=== PATIENT | female | born 2000 | race Caucasian/White ===

== ENCOUNTER 2021-12-31 17:37 | Emergency (ER) | payer OTHER ==
[2021-12-31 17:55] VITALS: BP 102/57; PULSE 100; RESP 16; TEMP 98.1
[2021-12-31] MEDS ORDERED: diphenhydrAMINE 50 MG/ML 1 ML VIAL IVP STA (18:55)
--- NOTE | 2021-12-31 18:56 | ED ---
Abdominal Pain HPI - General Chief Complaint: Abdominal Pain Stated Complaint: 15 WEEKS, ABD PAIN Time Seen by Provider: 12/31/21 18:00 Source: patient, RN notes reviewed Mode of arrival: ambulatory Limitations: no limitations - History of Present Illness Initial Comments: This is a 21-year-old female who presents to the emergency department for pelvic pain in . Patient is 15 weeks . When she was approximately 7 weeks , she did have vaginal bleeding and cramping in . The cramping resolved shortly after that and returned yesterday. She has had intermittent bouts of this since yesterday. It started on the left side and is now across the entire lower abdomen. Denies any vaginal bleeding. She sees Dr. Morton for obstetrics care, her next appointment with her is on January 18. Her most recent ultrasound was approximately 8 weeks ago when she had the vaginal bleeding and cramping. She does have some minor associated nausea and vomiting. This is her first . Denies any fevers, chills, sore throat, cough, dyspnea, chest pain, palpitations, diarrhea, back pain, or headaches. MD Complaint: abdominal pain Onset/Timin -: days(s) Associated Symptoms: nausea - Related Data Patient : Yes Number of weeks : 15 Previous Rx's Medication Instructions Recorded Cephalexin [Keflex] 500 mg PO Q8HR 7 Days #21 cap 12/31/21 Allergies Allergy/AdvReac Type Severity Reaction Status Date / Time No Known Allergies Allergy Verified 12/31/21 17:54 Review of Systems ROS Statement: Those systems with pertinent positive or pertinent negative responses have been documented in the HPI. ROS Other: All systems not noted in ROS Statement are negative. Past Medical History Past Medical History: No Reported History History of Any Multi-Drug Resistant Organisms: None Reported Past Surgical History: No Surgical Hx Reported Past Psychological History: No Psychological Hx Reported Smoking Status: Never smoker Past Alcohol Use History: None Reported Past Drug Use History: None Reported General Exam Limitations: no limitations General appearance: alert, in no apparent distress Head exam: Present: atraumatic, normocephalic, normal inspection Respiratory exam: Present: normal lung sounds bilaterally. Absent: respiratory distress, wheezes, rales, rhonchi, stridor Cardiovascular Exam: Present: regular rate, normal rhythm, normal heart sounds. Absent: systolic murmur, diastolic murmur, rubs, gallop, clicks GI/Abdominal exam: Present: normal bowel sounds Neurological exam: Present: alert, oriented X3, CN II-XII intact Psychiatric exam: Present: normal affect, normal mood Skin exam: Present: warm, dry, intact, normal color. Absent: rash Course Vital Signs 12/31/21 12/31/21 17:51 22:24 Temperature 98.1 F Pulse Rate 100 Respiratory 16 16 Rate Blood Pressure 102/57 O2 Sat by Pulse 99 Oximetry Medical Decision Making - Medical Decision Making This is a 21-year-old female who presents to the emergency department for pelvic pain in . Lab work was nonactionable. Ultrasound reveals a viable intrauterine . Urinalysis is consistent with contamination, however given her symptoms, it does appear that there may also be a urinary tract infection with both bacteria and yeast. Patient was given a one-time dose of fluconazole. We discussed that fluconazole is a category C drug in , however there is no correlation with defects when given a one-time dose. Patient expresses understanding. Prescription for Keflex provided, with the first dose provided in the emergency department, as her pharmacy is currently closed. She was given a dose of Benadryl in the emergency department for nausea and vomiting. Advised [id number] vitamin B6 and Unisom if she continues to have nausea and vomiting. She will follow up with Dr. Morton as scheduled. Return precautions reviewed in depth, the patient is instructed to return to the emergency department with any new, worsening, or concerning symptoms. Patient verbalized understanding. This case was discussed in detail with the attending ED physician. Presentation, findings, and treatment plan discussed in detail as well. - Lab Data Result diagrams: 12/31/21 20:53 12/31/21 20:53 Lab Results 12/31/21 12/31/21 12/31/21 Range/Units 18:29 20:53 20:53 WBC 11.0 H (3.8-10.6) k/uL RBC 4.24 (3.80-5.40) m/uL Hgb 12.8 (11.4-16.0) gm/dL Hct 38.4 (34.0-46.0) % MCV 90.6 (80.0-100.0) fL MCH 30.2 (25.0-35.0) pg MCHC 33.3 (31.0-37.0) g/dL RDW 12.5 (11.5-15.5) % Plt Count 195 (150-450) k/uL MPV 6.7 Neutrophils % 92 % Lymphocytes % 4 % Monocytes % 3 % Eosinophils % 1 % Basophils % 0 % Neutrophils # 10.1 H (1.3-7.7) k/uL Lymphocytes # 0.5 L (1.0-4.8) k/uL Monocytes # 0.3 (0-1.0) k/uL Eosinophils # 0.1 (0-0.7) k/uL Basophils # 0.0 (0-0.2) k/uL Sodium 133 L (137-145) mmol/L Potassium 3.8 (3.5-5.1) mmol/L Chloride 100 (98-107) mmol/L Carbon Dioxide 22 (22-30) mmol/L Anion Gap 11 mmol/L BUN 7 (7-17) mg/dL Creatinine 0.57 (0.52-1.04) mg/dL Est GFR (CKD-EPI)AfAm >90 (>60 ml/min/1.73 sqM) Est GFR (CKD-EPI)NonAf >90 (>60 ml/min/1.73 sqM) Glucose 132 H (74-99) mg/dL Calcium 9.5 (8.4-10.2) mg/dL Total Bilirubin 2.2 H (0.2-1.3) mg/dL AST 22 (14-36) U/L ALT 18 (4-34) U/L Alkaline Phosphatase 89 (38-126) U/L Total Protein 7.3 (6.3-8.2) g/dL Albumin 4.1 (3.5-5.0) g/dL HCG, Quant 15226.3 mIU/mL Urine Color Yellow Urine Appearance Turbid H (Clear) Urine pH 6.5 (5.0-8.0) Ur Specific [place] 1.018 (1.001-1.035) Urine Protein 3+ H (Negative) Urine Glucose (UA) Negative (Negative) Urine Ketones 4+ H (Negative) Urine Blood Large H (Negative) Urine Nitrite Negative (Negative) Urine Bilirubin Negative (Negative) Urine Urobilinogen 4.0 (<2.0) mg/dL Ur Leukocyte Esterase Large H (Negative) Urine RBC >182 H (0-5) /hpf Urine WBC >182 H (0-5) /hpf Urine WBC Clumps Many H (None) /hpf Ur Squamous Epith Cells 8 H (0-4) /hpf Urine Bacteria Occasional H (None) /hpf Urine Mucus Many H (None) /hpf Urine Yeast (Budding) Moderate H (None) /hpf Blood Type Blood Type Recheck Bld Type Recheck Status 12/31/21 Range/Units 20:53 WBC (3.8-10.6) k/uL RBC (3.80-5.40) m/uL Hgb (11.4-16.0) gm/dL Hct (34.0-46.0) % MCV (80.0-100.0) fL MCH (25.0-35.0) pg MCHC (31.0-37.0) g/dL RDW (11.5-15.5) % Plt Count (150-450) k/uL MPV Neutrophils % % Lymphocytes % % Monocytes % % Eosinophils % % Basophils % % Neutrophils # (1.3-7.7) k/uL Lymphocytes # (1.0-4.8) k/uL Monocytes # (0-1.0) k/uL Eosinophils # (0-0.7) k/uL Basophils # (0-0.2) k/uL Sodium (137-145) mmol/L Potassium (3.5-5.1) mmol/L Chloride (98-107) mmol/L Carbon Dioxide (22-30) mmol/L Anion Gap mmol/L BUN (7-17) mg/dL Creatinine (0.52-1.04) mg/dL Est GFR (CKD-EPI)AfAm (>60 ml/min/1.73 sqM) Est GFR (CKD-EPI)NonAf (>60 ml/min/1.73 sqM) Glucose (74-99) mg/dL Calcium (8.4-10.2) mg/dL Total Bilirubin (0.2-1.3) mg/dL AST (14-36) U/L ALT (4-34) U/L Alkaline Phosphatase (38-126) U/L Total Protein (6.3-8.2) g/dL Albumin (3.5-5.0) g/dL HCG, Quant mIU/mL Urine Color Urine Appearance (Clear) Urine pH (5.0-8.0) Ur Specific [place] (1.001-1.035) Urine Protein (Negative) Urine Glucose (UA) (Negative) Urine Ketones (Negative) Urine Blood (Negative) Urine Nitrite (Negative) Urine Bilirubin (Negative) Urine Urobilinogen (<2.0) mg/dL Ur Leukocyte Esterase (Negative) Urine RBC (0-5) /hpf Urine WBC (0-5) /hpf Urine WBC Clumps (None) /hpf Ur Squamous Epith Cells (0-4) /hpf Urine Bacteria (None) /hpf Urine Mucus (None) /hpf Urine Yeast (Budding) (None) /hpf Blood Type O Positive Blood Type Recheck No Previous Record Bld Type Recheck Status ABR ONLY - Radiology Data Radiology results: report reviewed, image reviewed Disposition Clinical Impression: UTI in , Yeast UTI Disposition: HOME SELF-CARE Instructions (If sedation given, give patient instructions): Urinary Tract Infection in Women (ED), Yeast Infection (ED), Urinary Tract Infection in (ED) Additional Instructions: Return to the emergency department with any new, worsening, or concerning symptoms. Take the antibiotic as prescribed for 7 days. Take [id number] vitamin B6 and Unisom as needed for nausea and vomiting. Follow-up with Dr. Morton as scheduled. Prescriptions: Cephalexin [Keflex] 500 mg PO Q8HR 7 Days #21 cap Is patient prescribed a controlled substance at d/c from ED?: No Referrals: None,Stated [Primary Care Provider] - 1-2 days
[2021-12-31] MEDS ORDERED: PYRIDOXINE 100 MG/ML 1 ML VIAL IVP SCH (19:00)
--- NOTE | 2021-12-31 19:27 | US ---
EXAMINATION TYPE: US OB >= 14 wk fetus DATE OF EXAM: 12/31/2021 COMPARISON: None CLINICAL HISTORY: Pelvic pain in TECHNIQUE: Transabdominal (TA) GESTATIONAL AGE / DATING Physician Established: (14 weeks/6 days) EDC: 06/25/2022 Dates by LMP: LMP unknown Dates by First Scan: No previous this is first scan Dates by Current Scan: (15 weeks/3 days) EDC: 06/21/2022 SURVEY IUP: Single PLACENTA: Posterior PREVIA: No Previa RAHUL: 10.1 cm Normal CERVICAL LENGTH (transabdominal: norm > 3.0cm): 3.3 cm BIOMETRY PRESENTATION: Breech LIE: Transverse with head maternal Left BPD: 2.9 cm 15 weeks / 2 days HC: 10.6 cm 15 weeks / 0 days AC: 9.4 cm 15 weeks / 4 days FL: 1.6 cm 14 weeks / 6 days ESTIMATED WEIGHT IN GRAMS: 116 grams ESTIMATED WEIGHT IN LBS/OZ: 0 lbs. 4 oz. WEIGHT PERCENTAGE BASED ON ESTABLISHED DATES: 59% HC/AC: 1.13 Normal FL/AC: 17.34 HEART RATE: 179 bpm RHYTHM: Normal IMPRESSION: No acute process.
[2021-12-31 21:02] LABS: Basophils % (A) 0 %; Eosinophils # (A) 0.1 k/uL (0-0.7); Eosinophils % (A) 1 %; HCT 38.4 % (34.0-46.0); HGB 12.8 gm/dL (11.4-16.0); Lymphocytes # (A) 0.5 k/uL (1.0-4.8); Lymphocytes % (A) 4 %; MCH 30.2 pg (25.0-35.0); MCHC 33.3 g/dL (31.0-37.0); MCV 90.6 fL (80.0-100.0); Mean Platelet Volume 6.7; Monocytes # (A) 0.3 k/uL (0-1.0); Monocytes % (A) 3 %; Neutrophils # (A) 10.1 k/uL (1.3-7.7); Neutrophils % (A) 92 %; Platelet Count 195 k/uL (150-450); RBC 4.24 m/uL (3.80-5.40); RDW 12.5 % (11.5-15.5)
[2021-12-31 21:20] LABS: ALT 18 U/L (4-34); AST 22 U/L (14-36); African American GFR (CKD) >90 (>60 ml/min/1.73 sqM); Albumin 4.1 g/dL (3.5-5.0); Alkaline Phosphatase 89 U/L (38-126); Anion Gap 11 mmol/L; Blood Urea Nitrogen 7 mg/dL (7-17); Calcium 9.5 mg/dL (8.4-10.2); Carbon Dioxide 22 mmol/L (22-30); Chloride 100 mmol/L (98-107); Glucose 132 mg/dL (74-99); Non-African American GFR(CKD) >90 (>60 ml/min/1.73 sqM); Potassium 3.8 mmol/L (3.5-5.1); Sodium 133 mmol/L (137-145); Total Bilirubin 2.2 mg/dL (0.2-1.3); Total Protein 7.3 g/dL (6.3-8.2)
[2021-12-31 21:24] LABS: Appearance,Urine Turbid (Clear); Bacteria,Urine Occasional /hpf; Bilirubin,Urine Negative (Negative); Blood,Urine Large (Negative); Budding Yeast,Urine Moderate /hpf; Color,Urine Yellow; Glucose,Urine (UA) Negative (Negative); Ketones,Urine 4+ (Negative); Leukocyte Esterase,Urine Large (Negative); Mucus,Urine Many /hpf; Nitrite,Urine Negative (Negative); PH, Urine 6.5 (5.0-8.0); Protein,Urine 3+ (Negative); RBC,Urine >182 /hpf (0-5); Specific Gravity,Urine 1.018 (1.001-1.035); Squamous Epithelial Cell,Urine 8 /hpf (0-4); WBC,Urine >182 /hpf (0-5)
[2021-12-31] MEDS ORDERED: CEPHALEXIN 500 MG CAP PO STA (22:02)
[2021-12-31] MEDS ORDERED: FLUCONAZOLE 150 MG TAB PO STA (22:02)
[2021-12-31 22:33] LABS: HCG,Quantitative Serum 84002.3 mIU/mL
== END 2021-12-31 22:25 | disposition home or self-care (01) ==
LOC: EC 17:37
DX: O23.42 Unspecified infection of urinary tract in pregnancy, second trimester (principal); Z3A.15 15 weeks gestation of pregnancy
CPT/HCPCS: 99284; 96374; 96375; 36415; 86900; 86901; 80053; 85025; 81001; 84702; 87086; 76805; J1200; J3415

== ENCOUNTER 2022-04-03 22:40 | Outpatient (CLI) | payer OTHER ==
[2022-04-04 00:22] VITALS: BP 125/56; PULSE 86; RESP 17; TEMP 97.5
--- NOTE | 2022-05-03 07:50 | P.MSEPDOC ---
Presenting Problems - Arrival Data Date of Arrival on Unit: 04/03/22 Time of Arrival on Unit: 22:40 Mode of Transport: Ambulatory - Complaint OB-Reason for Admission/Chief Complaint: Vaginal Bleeding Comment: pt presented to triage for some vaginal bleeding noted on TP an hour before coming in and for pelvic and vaginal pressure Medical History - Information : 1 Para: 0 Term: 0 : 0 Abortions: Spontaneous or Elective: 0 Number of Living Children: 0 - Gestational Age Gestational Age by DONELL (wks/days): 28 Weeks and 2 Days Review of Systems - Review of Systems Constitutional: No problems Breast: No problems ENT: No problems Cardiovascular: No problems Respiratory: No problems Gastrointestinal: No problems Genitourinary: No problems Musculoskeletal: No problems Neurological: No problems Skin: No problems Vital Signs - Temperature Temperature: 97.5 F Temperature Source: Temporal Artery Scan - Pulse Right Brachial Pulse Rate: 86 Pulse Assessment Method: Automatic Cuff - Respirations Respiratory Rate: 17 Oxygen Delivery Method: Room Air O2 Sat by Pulse Oximetry: 97 - Blood Pressure Right Arm Blood Pressure: 125/56 Blood Pressure Mean: 79 Blood Pressure Source: Automatic Cuff Medical Screen Scoring - Cervical Exam Dilation (cm): 0 - Assessment - Baby A Baseline FHR: 130 NST: Reactive Physician Notification - Physician Notified Physician Notified Date: 04/04/22 Physician Notified Time: 23:09 Physician: Jenn Call - Notification Comment Comment: reactive nst, cervical exam closed/thick/high with no change, just some pink on the pt's TP, discharged home with instructions to hydrate and follow up with Dr. Morton in the office at next scheduled appt Maternal Triage Index - Urgent/Priority 2 Urgent Priority 2: No Provider Notified: Jenn Call Provider Notified Time: 23:09 Criteria Met for Priority 2: pt presented to triage for some vaginal bleeding noted on TP an hour before coming in and for pelvic and vaginal pressure, GA 28 06/12 - Prompt/Priority 3 Prompt Priority 3: No - Non-Urgent/Priority 4 Non-Urgent Priority 4: No - Scheduled/Requesting Priority 5 Scheduled/Requesting Priority 5: No Disposition - Disposition OB Disposition: Triage, Discharge to home, Written follow up instructions reviewed Discharge Date: 04/04/22 Discharge Time: 11:10 I agree with the RN Medical Screening Exam: Yes Case reviewed; plan agreed upon as documented in EMR&OBIX.: Yes Diagnosis: PELVIC AND PERINEAL PAIN
== END 2022-04-04 00:10 | disposition home or self-care (01) ==
LOC: FBPOP 22:40
PROVIDERS: ATTEND Obstetrics & Gynecology
DX: O26.893 Other specified pregnancy related conditions, third trimester (principal); Z3A.28 28 weeks gestation of pregnancy; R10.2 Pelvic and perineal pain; N93.9 Abnormal uterine and vaginal bleeding, unspecified
CPT/HCPCS: 59025; G0463; 99213

== ENCOUNTER 2022-05-20 01:14 | Outpatient (CLI) | payer OTHER ==
[2022-05-20] MEDS: LACTATED RINGERS 1,000 ML IV SCH ×2 (02:00→02:40)
[2022-05-20 02:07] LABS: Amorphous Sediment,Urine Rare /hpf; Appearance,Urine Turbid (Clear); Bacteria,Urine Few /hpf; Bilirubin,Urine Negative (Negative); Blood,Urine Negative (Negative); Color,Urine Yellow; Glucose,Urine (UA) Negative (Negative); Ketones,Urine Negative (Negative); Leukocyte Esterase,Urine Large (Negative); Mucus,Urine Few /hpf; Nitrite,Urine Negative (Negative); PH, Urine 7.5 (5.0-8.0); Protein,Urine 1+ (Negative); RBC,Urine 4 /hpf (0-5); Specific Gravity,Urine 1.021 (1.001-1.035); Squamous Epithelial Cell,Urine 26 /hpf (0-4); Urobilinogen,Urine <2.0 mg/dL (<2.0); WBC,Urine 46 /hpf (0-5)
[2022-05-20 04:06] VITALS: BP 129/56; PULSE 77; RESP 15; TEMP 97.6
--- NOTE | 2022-05-22 09:13 | P.MSEPDOC ---
Presenting Problems - Arrival Data Date of Arrival on Unit: 05/20/22 Time of Arrival on Unit: 01:14 Mode of Transport: Ambulatory - Complaint OB-Reason for Admission/Chief Complaint: Possible Onset of Labor Comment: Patient arrived to triage c/o Chest pain on and off that started yesterday. and is not present now. Emesis started today x4 and ended 4pm. lower abdominal cramping. and pelvic pressure / on and off went to work today and had pain on and off. Denies. sexual intercourse in last 24 hours, Denies bleeding or leaking of fluid. S/O in room. Abdomen soft to palpation. Medical History - Information : 1 Para: 0 Term: 0 : 0 Abortions: Spontaneous or Elective: 0 Number of Living Children: 0 - Gestational Age Gestational Age by DONELL (wks/days): 34 Weeks and 6 Days Review of Systems - Review of Systems Constitutional: No problems Breast: No problems ENT: No problems Cardiovascular: No problems Respiratory: No problems Gastrointestinal: No problems Genitourinary: No problems Musculoskeletal: No problems Neurological: No problems Skin: No problems Vital Signs - Temperature Temperature: 97.6 F Temperature Source: Temporal Artery Scan - Pulse Pulse Oximetery Pulse Rate: 77 Pulse Assessment Method: Pulse Oximetry - Respirations Respiratory Rate: 15 Oxygen Delivery Method: Room Air O2 Sat by Pulse Oximetry: 93 - Blood Pressure Right Arm Blood Pressure: 129/56 Blood Pressure Mean: 80 Blood Pressure Source: Automatic Cuff Medical Screen Scoring - Cervical Exam Membranes: Intact - Uterine Contractions Frequency From (mins): 2 Frequency To (mins): 5 Duration From (seconds): 60 Duration To (seconds): 80 Intensity: Absent Resting: Soft to palpation - Assessment - Baby A Baseline FHR: 120 Heart Rate - NICHD Category: Category I (Normal) NST: Reactive Physician Notification - Physician Notified Physician Notified Date: 05/20/22 Physician Notified Time: 01:35 Physician: Heathre Morton Order Received: Yes - Notification Comment Comment: RN spoke with Dr. Morton via telephone Dr. Morton aware of patient complaints and. ordered urinalysis, FFN, check cervix, if dialted start hydration of alex. consistent start hydration. Call back with findings. [address]05/20/2022 Comment: Dr. Morton aware of patients maternal and status, FHR , contractions, pain. that has improved from a 11/13 to 08/[address] Morton is aware of cervical exam. fingertip/thick/-3 RN checked 1 hour later and patient was the same. Dr. Morton aware that. FFN lab result is positive. Dr. Morton will discharge patient and patient will return if. contractions get more painful and stronger. Dr. Morton ordered 2 liter of LR on patient. and can leave when LR finished. Maternal Triage Index - Prompt/Priority 3 Prompt Priority 3: Yes Criteria Met for Priority 3: Patient arrived to triage c/o Chest pain on and off that started yesterday. and is not present now. Emesis started today x4 and ended 4pm. lower abdominal cramping. and pelvic pressure 05/18 on and off went to work today and had pain on and off. Denies. sexual intercourse in last 24 hours, Denies bleeding or leaking of fluid. S/O in room. abdomen soft to palpation. Disposition - Disposition OB Disposition: Discharge to home Discharge Date: 05/20/22 Discharge Time: 03:20 I agree with the RN Medical Screening Exam: Yes Case reviewed; plan agreed upon as documented in EMR&OBIX.: Yes Diagnosis: FALSE LABOR BEFORE 37 COMPLETED WEEKS OF GEST, THIRD TRI
== END 2022-05-20 03:20 | disposition home or self-care (01) ==
LOC: FBPOP 01:14
PROVIDERS: ATTEND Obstetrics & Gynecology
DX: O47.03 False labor before 37 completed weeks of gestation, third trimester (principal); Z3A.34 34 weeks gestation of pregnancy
CPT/HCPCS: 59025; 96360; 96361; 82731; 81001; 87086; G0463; 99213

== ENCOUNTER 2022-05-24 19:44 | Outpatient (CLI) | payer OTHER ==
[2022-05-24 23:06] VITALS: BP 129/71; PULSE 86; RESP 16; TEMP 96.8
--- NOTE | 2022-05-25 06:55 | P.MSEPDOC ---
Presenting Problems - Arrival Data Date of Arrival on Unit: 05/24/22 Time of Arrival on Unit: 19:44 Mode of Transport: Ambulatory - Complaint OB-Reason for Admission/Chief Complaint: Possible Onset of Labor Medical History - Information : 1 Para: 0 Term: 0 : 0 Abortions: Spontaneous or Elective: 0 Number of Living Children: 0 - Gestational Age Gestational Age by DONELL (wks/days): 35 Weeks and 3 Days Review of Systems - Review of Systems Constitutional: No problems Breast: No problems ENT: No problems Cardiovascular: No problems Respiratory: No problems Gastrointestinal: No problems Genitourinary: No problems Musculoskeletal: No problems Neurological: No problems Skin: No problems Vital Signs - Temperature Temperature: 96.8 F Temperature Source: Oral - Pulse Right Brachial Pulse Rate: 86 Pulse Assessment Method: Automatic Cuff - Respirations Respiratory Rate: 16 Oxygen Delivery Method: Room Air O2 Sat by Pulse Oximetry: 100 - Blood Pressure Right Arm Blood Pressure: 129/71 Blood Pressure Mean: 90 Blood Pressure Source: Automatic Cuff Medical Screen Scoring - Cervical Exam Dilation (cm): 2 Effacement (%): 60 Station: -2 Membranes: Intact - Uterine Contractions Frequency From (mins): 2 Frequency To (mins): 5 Duration From (seconds): 50 Duration To (seconds): 70 Intensity: Mild Resting: Soft to palpation - Assessment - Baby A Baseline FHR: 120 Heart Rate - NICHD Category: Category I (Normal) NST: Reactive Physician Notification - Physician Notified Physician Notified Date: 05/24/22 Physician Notified Time: 21:00 Physician: Stephon Greenwood New Order Received: Yes - Notification Comment Comment: Dr. Greenwood called with reporrt of patient c/o contractions and rupture of. membranes. Amnisure negative, alex 2-4minutes, reactive NST, and cervical exam. the same after 1 hour 60/-2. Patient may be discahrge home. Maternal Triage Index - Stat/Priority 1 Stat Priority 1: No - Urgent/Priority 2 Urgent Priority 2: No - Prompt/Priority 3 Prompt Priority 3: Yes Criteria Met for Priority 3: 25 4/7 labor complaints Disposition - Disposition OB Disposition: Discharge to home Discharge Date: 05/24/22 Discharge Time: 21:00 I agree with the RN Medical Screening Exam: Yes Case reviewed; plan agreed upon as documented in EMR&OBIX.: Yes Diagnosis: FALSE LABOR BEFORE 37 COMPLETED WEEKS OF GEST, THIRD TRI
== END 2022-05-24 21:00 ==
LOC: FBPOP 19:44
PROVIDERS: ATTEND Obstetrics & Gynecology
DX: O47.03 False labor before 37 completed weeks of gestation, third trimester (principal); Z3A.35 35 weeks gestation of pregnancy
CPT/HCPCS: 84112; G0463; 99213

== ENCOUNTER 2022-05-27 23:55 | Inpatient (IN) | payer OTHER ==
[2022-05-28] MEDS ORDERED: TERBUTALINE 1 MG/ML VIAL SQ PRN (00:36)
[2022-05-28] MEDS ORDERED: LIDOCAINE 0.5% (PF) 5 MG/ML (50 ML SDV) SQ PRN (00:36)
[2022-05-28] MEDS ORDERED: OXYTOCIN 30 UNITS/500 ML NS 30 UNIT in SALINE 1 500ML.BAG IV SCH ×2 (00:45→12:04)
[2022-05-28] MEDS ORDERED: AMPICILLIN 2,000 MG in SODIUM CHLORIDE 0.9% 100 ML IVPB ONE (01:00)
[2022-05-28 01:11] LABS: Basophils % (A) 0 %; Eosinophils % (A) 0 %; HCT 34.2 % (34.0-46.0); HGB 11.7 gm/dL (11.4-16.0); Lymphocytes # (A) 1.5 k/uL (1.0-4.8); Lymphocytes % (A) 14 %; MCH 29.7 pg (25.0-35.0); MCHC 34.3 g/dL (31.0-37.0); MCV 86.7 fL (80.0-100.0); Mean Platelet Volume 8.1; Monocytes # (A) 0.4 k/uL (0-1.0); Monocytes % (A) 4 %; Neutrophils % (A) 78 %; Platelet Count 234 k/uL (150-450); RBC 3.94 m/uL (3.80-5.40); RDW 12.9 % (11.5-15.5); WBC 10.2 k/uL (3.8-10.6)
[2022-05-28] MEDS: LACTATED RINGERS 1,000 ML IV SCH ×2 (03:11→08:05)
--- NOTE | 2022-05-28 06:40 | P.HPOB ---
History of Present Illness H&P Date: 05/28/22 Chief Complaint: Leaking fluid This patient is a pleasant 21-year-old 1 para 0 female estimated date of confinement 06/25/2022 estimated gestational age 36-0/7 weeks gestation who was admitted last evening with complaints of gush of fluid at about 9:00 in the evening. Patient's care is per Dr. Durbin appears to be complicated by contractions. She did have a positive fibronectin at 35 weeks. otherwise appears to be uncomplicated. Review of Systems Genitourinary: Reports Menstruation: Reports amenorrhea Past Medical History Past Medical History: No Reported History History of Any Multi-Drug Resistant Organisms: None Reported Past Surgical History: No Surgical Hx Reported Past Anesthesia/Blood Transfusion Reactions: No Reported Reaction Past Psychological History: No Psychological Hx Reported Smoking Status: Former smoker Past Alcohol Use History: None Reported Past Drug Use History: None Reported Medications and Allergies Home Medications Medication Instructions Recorded Confirmed Type No Known Home Medications 04/03/22 05/28/22 History Allergies Allergy/AdvReac Type Severity Reaction Status Date / Time No Known Allergies Allergy Verified 05/28/22 00:10 Exam Vital Signs Temp Pulse Resp BP Pulse Ox 05/28/22 00:35 96.8 F L 92 16 125/69 98 05/28/22 00:10 96.8 F L 92 16 125/69 98 Intake and Output 05/27/22 05/27/22 05/28/22 14:59 22:59 06:59 Other: # Voids 3 Weight 63.957 kg - OBG Physical Exam Abdomen: bowel sounds normal, no diffuse tenderness, no bruit present, no guarding noted, no hepatomegaly, no splenomegaly, no mass Vulva: both: normal Vagina: normal moisture, no discharge Cervix: no lesion (Cervix is 4-5 cm dilated 80% effaced gross rupture membranes for clear fluid), no discharge Uterus: enlarged Results labs show she is O positive, rubella immune, RPR nonreactive, hepatitis B negative, HIV is nonreactive, Glucola was normal, group B strep was positive. Most recent ultrasound showed baby to be 5 lbs. 6 oz. Result Diagrams: 05/28/22 00:38 Abnormal Lab Results - Last 24 Hours (Table) 05/28/22 Range/Units 00:38 Neutrophils # 8.0 H (1.3-7.7) k/uL Assessment and Plan Assessment: This is a pleasant 21-year-old 1 para 0 female 36-0/7 weeks gestation with premature rupture membranes area and patient also has a positive group B strep culture. Plan is antibiotic prophylaxis, Pitocin augm entation of labor as needed, and anticipate vaginal delivery. I did discuss with the patient the fact the baby is there is a factor could go to the special care nursery. (1) 36 weeks gestation of Current Visit: Yes Status: Acute Code(s): Z3A.36 - 36 WEEKS GESTATION OF SNOMED Code(s): 61635394 (2) premature rupture of membranes Current Visit: Yes Status: Acute Code(s): O42.919 - PRETRM FITO ROM, UNSP TIME BETW RUPT AND ONST LABR, UNSP TRI SNOMED Code(s): 224769673
[2022-05-28] MEDS: AMPICILLIN 1,000 MG in SODIUM CHLORIDE 0.9% 50 ML IVPB SCH ×2 (06:47→10:25)
[2022-05-28] MEDS ORDERED: ROPIVACAINE 5 MG/ML 20 ML AMPULE ONE (08:30)
[2022-05-28] MEDS ORDERED: fentaNYL (PF) 50 MCG/ML 5 ML AMP ONE (08:30)
[2022-05-28] MEDS ORDERED: SODIUM CHLORIDE 0.9% 100 ML BAG ONE (08:30)
--- NOTE | 2022-05-28 11:52 | P.PROBDLV ---
Vaginal Delivery Note - . Vaginal Delivery Note: Normal spontaneous vaginal delivery viable female infant Apgars 8 and 9 delivery time is 1136 hrs. Please see dictated H&P for intimate details of this patient's admission. Brief summary this is a pleasant 21-year-old 1 para 0 female 36 weeks gestation who is admitted to labor and delivery with spontaneous rupture membranes last evening at 9:00. Patient is antibiotic prophylaxis for positive group B strep culture and Pitocin augmentation of labor. She does get an epidural for pain control with excellent relief. Patient progresses quickly gets to complete. She pushes the head to the perineum and the posterior perineum is supported. We have controlled delivery of the 's head over the intact perineum. Infant is straight occiput anterior presentation. Mouth and nares are bulb suctioned. With gentle downward traction and maternal effort we have delivery the anterior shoulder and posterior shoulder and rest this 's body. This is a vigorous viable female infant Apgars are 8 and 9 delivery time was 1136 hrs. After delivery of the the umbilical cord is doubly clamped and cut is very short. Infant is in late on the mother's abdomen nursing personnel's therapy to assess. The placenta is then spontaneously delivered intact. Inspection of the perineum shows only superficial vaginal laceration does not require repair. and mother are stable in delivery room.
[2022-05-28] MEDS ORDERED: diphenhydrAMINE 50 MG/ML 1 ML VIAL IVP PRN (12:04)
[2022-05-28] MEDS ORDERED: diphenhydrAMINE 25 MG CAP PO PRN (12:04)
[2022-05-28] MEDS ORDERED: SIMETHICONE 80 MG CHEWABLE PO PRN (12:04)
[2022-05-28] MEDS ORDERED: LANOLIN CREAM 5 GM TUBE TOPICAL PRN (12:04)
[2022-05-28] MEDS ORDERED: ACETAMINOPHEN TAB 325 MG TAB PO PRN (12:04)
[2022-05-28] MEDS ORDERED: bisacodyL 10 MG SUPP RECTAL PRN (12:04)
[2022-05-28] MEDS ORDERED: BENZOCAINE/MENTHOL SPRAY 1 GM/SPRAY AEROSOL TOPICAL PRN (12:04)
[2022-05-28] MEDS ORDERED: HYDROCORTISONE 2.5% RECTAL CREAM 30 GM TUBE RECTAL PRN (12:04)
[2022-05-28] MEDS ORDERED: ZOLPIDEM 5 MG TAB PO PRN (12:04)
[2022-05-28] MEDS: IBUPROFEN 600 MG TAB PO PRN (14:57)
[2022-05-29] MEDS: SENNOSIDES-DOCUSATE SODIUM 1 EACH TAB PO SCH ×4 (00:23→21:17)
[2022-05-29] MEDS: IBUPROFEN 600 MG TAB PO PRN ×2 (00:24→23:40)
[2022-05-29 05:56] LABS: Basophils % (A) 0 %; Eosinophils # (A) 0.1 k/uL (0-0.7); Eosinophils % (A) 1 %; HCT 28.1 % (34.0-46.0); Lymphocytes # (A) 1.5 k/uL (1.0-4.8); Lymphocytes % (A) 17 %; MCH 29.5 pg (25.0-35.0); MCV 86.9 fL (80.0-100.0); Mean Platelet Volume 8.8; Monocytes # (A) 0.3 k/uL (0-1.0); Monocytes % (A) 4 %; Neutrophils # (A) 6.9 k/uL (1.3-7.7); Neutrophils % (A) 77 %; Platelet Count 172 k/uL (150-450); RBC 3.23 m/uL (3.80-5.40)
[2022-05-29 05:59] LABS: HGB 9.5 gm/dL (11.4-16.0)
--- NOTE | 2022-05-29 06:22 | P.PNOBGVD ---
Subjective - Subjective Patient reports: Reports appetite normal, Reports voiding normally, Reports pain well controlled, Reports ambulating normally : doing well Objective - Latest Vital Signs Latest vital signs: Vital Signs Temp Pulse Resp BP Pulse Ox 05/29/22 00:00 97.4 F L 74 19 107/69 97 05/28/22 20:00 97.4 F L 71 17 118/65 96 05/28/22 16:37 97.4 F L 88 16 122/72 05/28/22 14:06 81 16 112/53 05/28/22 13:36 83 16 116/59 05/28/22 13:06 78 16 113/53 05/28/22 12:35 89 16 124/60 05/28/22 12:20 89 16 110/61 05/28/22 12:05 86 16 114/58 05/28/22 11:50 97.8 F 93 16 120/66 Intake and Output 05/28/22 05/28/22 05/29/22 14:59 22:59 06:59 Intake Total 480 480 Output Total 200 Balance -200 480 480 Intake: Oral 480 480 Output: Estimated Blood Loss 100 Output, Quantitative 100 Blood Loss Other: # Voids 1 1 1 - Exam Lungs: bilateral: normal Chest: Normal S1, Normal S2 Extremities: Present: normal Abdomen: Present: normal appearance, soft Uterus: Present: normal, firm - Labs Labs: Abnormal Lab Results - Last 24 Hours (Table) 05/29/22 Range/Units 05:45 RBC 3.23 L (3.80-5.40) m/uL Hgb 9.5 L D (11.4-16.0) gm/dL Hct 28.1 L (34.0-46.0) % Assessment and Plan Assessment: day #1. Patient is resting without complaints and wishes to go home. Vital signs are stable she's afebrile. Uterus is firm nontender she's having normal lochia. Patient's baby is being watched for jaundice therefore this may delay her discharge until tomorrow. At this time are going to continue routine care discharge home later today if she wishes. (1) 36 weeks gestation of Current Visit: Yes Status: Acute Code(s): Z3A.36 - 36 WEEKS GESTATION OF SNOMED Code(s): 74319108 (2) premature rupture of membranes Current Visit: Yes Status: Acute Code(s): O42.919 - PRETRM FITO ROM, UNSP TIME BETW RUPT AND ONST LABR, UNSP TRI SNOMED Code(s): 673595792
--- NOTE | 2022-05-29 06:26 | P.DS ---
Providers Date of admission: 05/28/22 00:26 Expected date of discharge: 05/29/22 Attending physician: Heather Morton Primary care physician: Stated None - Discharge Diagnosis(es) (1) 36 weeks gestation of Current Visit: Yes Status: Acute (2) premature rupture of membranes Current Visit: Yes Status: Acute Hospital Course: Please see dictated H&P for intimate details of this patient's admission. Brief summary this is a 21-year-old 1 para 0 female 36 and one sevenths weeks gestation admitted to labor and delivery with spontaneous rupture membranes. Patient quickly goes on to have a vaginal delivery of viable female infant. Please see dictated delivery note. day 1 patient's felt to be stable for discharge home follow up with Dr. Morton in 6 weeks. Procedures: Normal spontaneous vaginal delivery. Patient Condition at Discharge: Good Plan - Discharge Summary New Discharge Prescriptions: New Ibuprofen [Motrin] 600 mg PO Q6HR PRN #30 tab PRN Reason: Mild Pain (Scale 1 To 3) Discharge Medication List Ibuprofen [Motrin] 600 mg PO Q6HR PRN #30 tab 05/29/22 [Rx] Follow up Appointment(s)/Referral(s): Heather Morton DO [Doctor of Osteopathic Medicine] - 07/05/22 3:30 pm Patient Instructions/Handouts: Vaginal Delivery (DC) Activity/Diet/Wound Care/Special Instructions: No intercourse or anything per vagina for 6 weeks. Please call if any fever, chills, excessive vaginal bleeding, and/or abdominal pain Discharge Disposition: HOME SELF-CARE
[2022-05-29 21:10] VITALS: RESP 18
--- NOTE | 2022-05-30 06:20 | P.PNOBGVD ---
Subjective - Subjective Patient reports: Reports appetite normal, Reports voiding normally, Reports pain well controlled, Reports ambulating normally : doing well Objective - Latest Vital Signs Latest vital signs: Vital Signs Temp Pulse Resp BP Pulse Ox 05/30/22 00:00 97.8 F 78 18 111/74 97 05/29/22 20:00 97.7 F 80 18 116/84 97 05/29/22 16:00 98.0 F 91 16 113/65 05/29/22 12:00 97.5 F L 69 16 109/63 05/29/22 08:00 97.5 F L 72 16 105/66 Intake and Output 05/29/22 05/29/22 05/30/22 14:59 22:59 06:59 Output Total 1 Balance -1 Output: Urine 1 Other: # Voids 2 1 - Exam Lungs: bilateral: normal Chest: Normal S1, Normal S2 Extremities: Present: normal Abdomen: Present: normal appearance, soft Uterus: Present: normal, firm Assessment and Plan Assessment: day #2. Patient initially wanted to be discharged yesterday however her baby had to stay for jaundice issues and therefore patient also stay until today. Patient continues to well was felt be stable for discharge home follow up in 6 weeks. (1) 36 weeks gestation of Current Visit: Yes Status: Acute Code(s): Z3A.36 - 36 WEEKS GESTATION OF SNOMED Code(s): 94947159 (2) premature rupture of membranes Current Visit: Yes Status: Acute Code(s): O42.919 - PRETRM FITO ROM, UNSP TIME BETW RUPT AND ONST LABR, UNSP TRI SNOMED Code(s): 211592545
[2022-05-30] MEDS: SENNOSIDES-DOCUSATE SODIUM 1 EACH TAB PO SCH (09:47)
[2022-05-30 09:55] VITALS: BP 103/57; PULSE 71; TEMP 97.9
== END 2022-05-30 11:15 | disposition home or self-care (01) | DRG 807 ==
LOC: FBPOP 23:55 → 4FBP 05-28 00:26
PROVIDERS: ADMIT Obstetrics & Gynecology; ATTEND Obstetrics & Gynecology
PROC: 10E0XZZ Delivery of Products of Conception, External Approach (ICD-10-PCS; principal; 2022-05-28)
PROC: 0HQ9XZZ Repair Perineum Skin, External Approach (ICD-10-PCS; 2022-05-28)
PROC: 3E033VJ Introduction of Other Hormone into Peripheral Vein, Percutaneous Approach (ICD-10-PCS; 2022-05-28)
PROC: 4A0HXCZ Measurement of Products of Conception, Cardiac Rate, External Approach (ICD-10-PCS; 2022-05-28)
DX: O42.913 Preterm premature rupture of membranes, unspecified as to length of time between rupture and onset of labor, third trimester (principal); Z37.0 Single live birth; O70.0 First degree perineal laceration during delivery; Z3A.36 36 weeks gestation of pregnancy; O99.824 Streptococcus B carrier state complicating childbirth; Z87.891 Personal history of nicotine dependence
CPT/HCPCS: 59025; 84112; 85025; 86850; 86900; 86901; 99213

== ENCOUNTER 2023-06-04 22:30 | Emergency (ER) | payer OTHER ==
[2023-06-04 22:58] VITALS: TEMP 98.7
[2023-06-04] MEDS ORDERED: SODIUM CHLORIDE 0.9% 1,000 ML IV ONE (23:31)
[2023-06-04] MEDS ORDERED: ACETAMINOPHEN TAB 325 MG TAB PO STA (23:32)
[2023-06-04] MEDS ORDERED: IBUPROFEN 600 MG TAB PO STA (23:32)
--- NOTE | 2023-06-05 01:35 | ED ---
ENT HPI - General Chief complaint: ENT Stated complaint: Sinus congestion, sore throat Time Seen by Provider: 06/04/23 22:58 Source: patient Mode of arrival: ambulatory Limitations: no limitations - History of Present Illness Initial comments: 22-year-old female presenting with chief complaint of sore throat. Symptoms started about 2 days ago. She also admits to congestion, fatigue, cough, body aches. Denies shortness of breath. Subjective fever. No nausea, vomiting, diarrhea, abdominal pain. No palpitations or weakness. - Related Data Previous Rx's Medication Instructions Recorded Ibuprofen [Motrin] 600 mg PO Q6HR PRN #30 tab 05/29/22 Amoxicillin 500 mg PO Q12HR 10 Days #20 cap 06/05/23 Allergies Allergy/AdvReac Type Severity Reaction Status Date / Time No Known Allergies Allergy Verified 06/04/23 22:54 Review of Systems ROS Statement: Those systems with pertinent positive or pertinent negative responses have been documented in the HPI. ROS Other: All systems not noted in ROS Statement are negative. Past Medical History Past Medical History: No Reported History History of Any Multi-Drug Resistant Organisms: None Reported Past Surgical History: No Surgical Hx Reported Past Anesthesia/Blood Transfusion Reactions: No Reported Reaction Past Psychological History: No Psychological Hx Reported Smoking Status: Former smoker, Vaper Past Alcohol Use History: None Reported Past Drug Use History: None Reported General Exam Limitations: no limitations General appearance: alert, in no apparent distress Head exam: Present: atraumatic, normocephalic Eye exam: Present: normal appearance ENT exam: Present: mucous membranes moist, TM's normal bilaterally Expanded Throat exam: tonsillar erythema Neck exam: Present: normal inspection Respiratory exam: Present: normal lung sounds bilaterally. Absent: respiratory distress, wheezes, rales, rhonchi, stridor Cardiovascular Exam: Present: normal rhythm, tachycardia, normal heart sounds. Absent: systolic murmur, diastolic murmur, rubs, gallop, clicks Neurological exam: Present: alert, oriented X3 Psychiatric exam: Present: normal affect, normal mood Skin exam: Present: warm, dry Course Vital Signs 06/04/23 06/05/23 22:52 01:37 Temperature 98.7 F Pulse Rate 120 H 99 Respiratory 20 18 Rate Blood Pressure 102/67 87/53 O2 Sat by Pulse 96 94 L Oximetry Medical Decision Making - Medical Decision Making Was pt. sent in by a medical professional or institution (, [facility], [facility], urgent care, hospital, or [place] health care facility...) When possible be specific @ -No Did you speak to anyone other than the patient for history (EMS, parent, family, police, friend...)? What history was obtained from this source @ -No Did you review nursing and triage notes (agree or disagree)? Why? @ -I reviewed and agree with nursing and triage notes Were old charts reviewed (outside hosp., previous admission, EMS record, old EKG, old radiological studies, urgent care reports/EKG's, [place] health care facility records)? Report findings @ -No old charts were reviewed Differential Diagnosis (chest pain, altered mental status, abdominal pain women, abdominal pain men, vaginal bleeding, weakness, fever, dyspnea, syncope, headache, dizziness, GI bleed, back pain, seizure, CVA, palpatations, mental health, musculoskeletal)? @ -Differential includes Covid, influenza, RSV, strep throat, pneumonia, bronchitis, and this is not an all inclusive list EKG interpreted by me (3pts min.). @ -Sinus tachycardia ventricular rate 103. CT interval 144. QRS 85. QT 297. QTC 357. Normal axis. X-rays interpreted by me (1pt min.). @ -Final report still pending, no acute processes seen CT interpreted by me (1pt min.). @ -None done U/S interpreted by me (1pt. min.). @ -None done What testing was considered but not performed or refused? (CT, X-rays, U/S, labs)? Why? @ -None What meds were considered but not given or refused? Why? @ -None Did you discuss the management of the patient with other professionals (professionals i.e. BRIAN Lou, [facility], lab, RT, psych nurse, criminal justice social worker, pork cutlet maker, teacher, light armored vehicle officer, caseworker intake)? Give summary @ -No Was smoking cessation discussed for >3mins.? @ -No Was critical care preformed (if so, how long)? @ -No Were there social determinants of health that impacted care today? How? (Homelessness, low income, unemployed, alcoholism, drug addiction, transportation, low edu. Level, literacy, decrease access to med. care, senior living, rehab)? @ -No Was there de-escalation of care discussed even if they declined (Discuss DNR or withdrawal of care, Hospice)? DNR status @ -No What co-morbidities impacted this encounter? (DM, HTN, Smoking, COPD, CAD, Cancer, CVA, ARF, Chemo, Hep., AIDS, mental health diagnosis, sleep apnea, morbid obesity)? @ -None Was patient admitted / discharged? Hospital course, mention meds given and route, prescriptions, significant lab abnormalities, going to OR and other pertinent info. @ -22-year-old female presenting with chief complaint of sore throat as well as various URI-like symptoms. History of physical exam were conducted. Patient is a bit tachycardic upon arrival. She is given Motrin and Tylenol and IV fluids. EKG shows sinus tachycardia. Patient is positive for group A strep. Negative for influenza, RSV, and Covid. Final chest x-ray report is still pending, patient is educated on her results, she would like to be discharged and contacted with any results. She'll be started on amoxicillin 500 mg twice a day for 10 days. Follow-up with PCP. Report back to ER with any new or worsening symptoms. Discussed return parameters and answered all questions. Patient conveyed verbal understanding and agreed to the plan. I discussed this case in detail with my attending Dr. Hickey Undiagnosed new problem with uncertain prognosis? @ -No Drug Therapy requiring intensive monitoring for toxicity (Heparin, Nitro, Insulin, Cardizem)? @ -No Were any procedures done? @ -No Diagnosis/symptom? @ -Strep pharyngitis Acute, or Chronic, or Acute on Chronic? @ -Acute Uncomplicated (without systemic symptoms) or Complicated (systemic symptoms)? @ -Uncomplicated Side effects of treatment? @ -No Exacerbation, Progression, or Severe Exacerbation? @ -No Poses a threat to life or bodily function? How? (Chest pain, [place], [place], pneumonia, PE, COPD, DKA, ARF, appy, cholecystitis, CVA, Diverticulitis, Homicidal, Patel icidal, threat to staff... and all critical care pts) @ -No - Lab Data Lab Results 06/04/23 06/04/23 Range/Units 23:54 23:54 Influenza Type A (PCR) Not Detected (Not Detectd) Influenza Type B (PCR) Not Detected (Not Detectd) RSV (PCR) Not Detected (Not Detectd) SARS-CoV-2 (PCR) Not Detected (Not Detectd) Group A Strep (PCR) DETECTED A (Not Detectd) Disposition Clinical Impression: Strep pharyngitis Disposition: HOME SELF-CARE Condition: Good Instructions (If sedation given, give patient instructions): Strep Throat (ED) Additional Instructions: Follow-up with PCP. Report back to ER with any new or worsening symptoms. Alternate Motrin and Tylenol as needed for pain control. Take medication as prescribed. Prescriptions: Amoxicillin 500 mg PO Q12HR 10 Days #20 cap Is patient prescribed a controlled substance at d/c from ED?: No Referrals: None,Stated [Primary Care Provider] - 1-2 days Time of Disposition: 01:35
[2023-06-05 02:02] VITALS: BP 87/53; PULSE 99; RESP 18
--- NOTE | 2023-06-05 07:13 | XR ---
EXAMINATION TYPE: XR chest 2V DATE OF EXAM: 06/04/2023 11:54 PM CLINICAL INDICATION:Female, 22 years old with history of cough; PH[facility] COMPARISON: None TECHNIQUE: XR chest 2V. Frontal PA and lateral views of the chest. FINDINGS: Lines/Tubes: Extrinsic densities over the upper chest. No indwelling lines are seen. Heart/mediastinum: Heart size is normal. Mediastinal silhouette is unremarkable. Pulmonary vascularity: Not increased, Lungs/Pleura: There is no evidence of pleural effusion, focal consolidation, or pneumothorax. Musculoskeletal: No acute osseous abnormality demonstrated in the limits of the exam. Other findings: None. IMPRESSION: No acute cardiopulmonary abnormality.
== END 2023-06-05 01:42 | disposition home or self-care (01) ==
LOC: EC 22:30
DX: J02.0 Streptococcal pharyngitis (principal); F17.290 Nicotine dependence, other tobacco product, uncomplicated; Z20.822 Contact with and (suspected) exposure to COVID-19
CPT/HCPCS: 71046; 87636; 87651; 93005; 96360; 99284

== ENCOUNTER 2024-04-26 19:05 | Outpatient (CLI) | payer OTHER ==
[2024-04-26] MEDS: LACTATED RINGERS 1,000 ML BAG IV STA (20:00)
[2024-04-26 20:31] LABS: Appearance,Urine Cloudy (Clear); Bilirubin,Urine Negative (Negative); Blood,Urine Negative (Negative); Color,Urine Light Yellow; Glucose,Urine (UA) Negative (Negative); Ketones,Urine Negative (Negative); Leukocyte Esterase,Urine Moderate (Negative); Mucus,Urine Few /hpf; Nitrite,Urine Negative (Negative); Protein,Urine Negative (Negative); RBC,Urine 1 /hpf (0-5); Specific Gravity,Urine 1.012 (1.001-1.035); Squamous Epithelial Cell,Urine 3 /hpf (0-4); Urobilinogen,Urine <2.0 mg/dL (<2.0); WBC,Urine 11 /hpf (0-5)
[2024-04-26 20:33] LABS: Basophils % (A) 0 %; Eosinophils % (A) 0 %; HGB 11.7 gm/dL (11.4-16.0); Lymphocytes # (A) 1.6 k/uL (1.0-4.8); Lymphocytes % (A) 14 %; MCH 30.5 pg (25.0-35.0); MCHC 33.5 g/dL (31.0-37.0); MCV 91.2 fL (80.0-100.0); Monocytes # (A) 0.5 k/uL (0-1.0); Monocytes % (A) 5 %; Neutrophils # (A) 9.2 k/uL (1.3-7.7); Neutrophils % (A) 80 %; Platelet Count 221 k/uL (150-450); RBC 3.83 m/uL (3.80-5.40); RDW 12.3 % (11.5-15.5); WBC 11.5 k/uL (3.8-10.6)
[2024-04-26 20:39] LABS: Amphetamine Screen,Urine Not Detected (NotDetected); Barbiturate Screen,Urine Not Detected (NotDetected); Benzodiazepines Screen,Urine Not Detected (NotDetected); Cocaine Screen,Urine Not Detected (NotDetected); Methadone Screen, Urine Not Detected (NotDetected); Opiate Screen,Urine Not Detected (NotDetected); Oxycodone Screen, Urine Not Detected (NotDetected); Phencyclidine Screen,Urine Not Detected (NotDetected); Tricyclic Antidepressant,Urine Not Detected (NotDetected); Urn Cannabinoid Scrn Not Detected (NotDetected)
[2024-04-26] MEDS: ONDANSETRON 4 MG/2 ML VIAL IVP STA (20:46)
[2024-04-26] MEDS: TERBUTALINE 1 MG/ML VIAL SQ STA (21:13)
[2024-04-26 22:56] VITALS: BP 115/70; PULSE 96; RESP 19; TEMP 97.2
[2024-04-27 04:07] LABS: Hepatitis B Surface Antigen Nonreactive (Nonreactive)
[2024-04-27 05:22] LABS: HIV 2 AB Non-Reactive (Non-Reactive); HIV AB P24 Non-Reactive (Non-Reactive); HIV P24 AG Non-Reactive (Non-Reactive)
[2024-04-27 12:20] LABS: C. trachomatis,PCR Negative (Negative)
[2024-04-27 12:23] LABS: N. gonorrhoeae,PCR Negative (Negative)
--- NOTE | 2024-04-30 19:07 | P.MSEPDOC ---
Presenting Problems - Arrival Data Date of Arrival on Unit: 04/26/24 Time of Arrival on Unit: 19:05 Mode of Transport: Ambulatory - Complaint OB-Reason for Admission/Chief Complaint: Possible Onset of Labor Comment: Patient states she is having rahul anaya for a few hours, patient states she has had no care at all other than two ultrasounds one at [facility] at 11 weeks and one at a clinic in [place] at 17 weeks for gender. Patient states that she has been vomiting today and has had diarrhea on and off this . Medical History - Information : 2 Para: 1 : 1 Number of Living Children: 1 - Gestational Age Gestational Age by DONELL (wks/days): 31 Weeks and 2 Days - History Comment: Patient states she is having rahul anaya for a few hours, patient states she has had no care at all other than two ultrasounds one at [facility] at 11 weeks and one at a clinic in [place] at 17 weeks for gender. Patient states that she has been vomiting today and has had diarrhea on and off this . Review of Systems - Review of Systems Constitutional: No problems Breast: No problems ENT: No problems Cardiovascular: No problems Respiratory: No problems Gastrointestinal: No problems Genitourinary: No problems Musculoskeletal: No problems Neurological: No problems Skin: No problems Vital Signs - Temperature Temperature: 97.2 F Temperature Source: Temporal Artery Scan - Pulse Pulse Oximetery Pulse Rate: 96 Pulse Assessment Method: Pulse Oximetry - Respirations Respiratory Rate: 19 Oxygen Delivery Method: Room Air - Blood Pressure Right Arm Blood Pressure: 115/70 Blood Pressure Mean: 85 Blood Pressure Source: Automatic Cuff Medical Screen Scoring - Cervical Exam Dilation (cm): 1 Effacement (%): 50 Station: -3 Membranes: Intact - Uterine Contractions Frequency From (mins): 2 Frequency To (mins): 3 Duration From (seconds): 50 Duration To (seconds): 90 Intensity: Mild Resting: Soft to palpation - Assessment - Baby A Baseline FHR: 140 Heart Rate - NICHD Category: Category I (Normal) NST: Reactive Physician Notification - Physician Notified Physician Notified Date: 04/26/24 Physician Notified Time: 19:57 Physician: Dominga Esqueda New Order Received: Yes - Notification Comment Comment: RN spoke with Dr. Tremp regarding patient, Dr. Santiago aware of no care other than US. Dr. Esqueda aware of patients vitals FHR, contractions, Patient stated that she has been nauseous today and has had diarrhea on and off all . IV bolus of LR ordered and Zofran 4m IV, labs including urine, check in 1 hour and give terbutaline follow protocol if needed. Maternal Triage Index - Urgent/Priority 2 Urgent Priority 2: Yes Provider Notified: Dominga Esqueda Provider Notified Time: 19:57 Criteria Met for Priority 2: Patient states she is having rahul anaya for a few hours, patient states she has had no care at all other than two ultrasounds one at [facility] at 11 weeks and one at a clinic in [place] at 17 weeks for gender. Patient states that she has been vomiting today and has had diarrhea on and off this . less than 34 week and detectable contractions. Disposition - Disposition OB Disposition: Discharge to home Discharge Date: 04/26/24 Discharge Time: 21:58 I agree with the RN Medical Screening Exam: Yes Case reviewed; plan agreed upon as documented in EMR&OBIX.: Yes Diagnosis: FALSE LABOR BEFORE 37 COMPLETED WEEKS OF GEST, THIRD TRI
--- NOTE | 2024-04-30 19:13 | P.MSEPDOC ---
Presenting Problems - Arrival Data Date of Arrival on Unit: 04/26/24 Time of Arrival on Unit: 19:05 Mode of Transport: Ambulatory - Complaint OB-Reason for Admission/Chief Complaint: Possible Onset of Labor Comment: Patient states she is having rahul anaya for a few hours, patient states she has had no care at all other than two ultrasounds one at [facility] at 11 weeks and one at a clinic in [place] at 17 weeks for gender. Patient states that she has been vomiting today and has had diarrhea on and off this . Medical History - Information : 2 Para: 1 : 1 Number of Living Children: 1 - Gestational Age Gestational Age by DONELL (wks/days): 31 Weeks and 2 Days - History Comment: Patient states she is having rahul anaya for a few hours, patient states she has had no care at all other than two ultrasounds one at [facility] at 11 weeks and one at a clinic in [place] at 17 weeks for gender. Patient states that she has been vomiting today and has had diarrhea on and off this . Review of Systems - Review of Systems Constitutional: No problems Breast: No problems ENT: No problems Cardiovascular: No problems Respiratory: No problems Gastrointestinal: No problems Genitourinary: No problems Musculoskeletal: No problems Neurological: No problems Skin: No problems Vital Signs - Temperature Temperature: 97.2 F Temperature Source: Temporal Artery Scan - Pulse Pulse Oximetery Pulse Rate: 96 Pulse Assessment Method: Pulse Oximetry - Respirations Respiratory Rate: 19 Oxygen Delivery Method: Room Air - Blood Pressure Right Arm Blood Pressure: 115/70 Blood Pressure Mean: 85 Blood Pressure Source: Automatic Cuff Medical Screen Scoring - Cervical Exam Dilation (cm): 1 Effacement (%): 50 Station: -3 Membranes: Intact - Uterine Contractions Frequency From (mins): 2 Frequency To (mins): 3 Duration From (seconds): 50 Duration To (seconds): 90 Intensity: Mild Resting: Soft to palpation - Assessment - Baby A Baseline FHR: 140 Heart Rate - NICHD Category: Category I (Normal) NST: Reactive Physician Notification - Physician Notified Physician Notified Date: 04/26/24 Physician Notified Time: 19:57 Physician: Dominga Esqueda New Order Received: Yes - Notification Comment Comment: RN spoke with Dr. Tremp regarding patient, Dr. Santiago aware of no care other than US. Dr. Esqueda aware of patients vitals FHR, contractions, Patient stated that she has been nauseous today and has had diarrhea on and off all . IV bolus of LR ordered and Zofran 4m IV, labs including urine, check in 1 hour and give terbutaline follow protocol if needed. Maternal Triage Index - Urgent/Priority 2 Urgent Priority 2: Yes Provider Notified: Dominga Esqueda Provider Notified Time: 19:57 Criteria Met for Priority 2: Patient states she is having rahul anaya for a few hours, patient states she has had no care at all other than two ultrasounds one at [facility] at 11 weeks and one at a clinic in [place] at 17 weeks for gender. Patient states that she has been vomiting today and has had diarrhea on and off this . less than 34 week and detectable contractions. Disposition - Disposition OB Disposition: Discharge to home Discharge Date: 04/26/24 Discharge Time: 21:58 I agree with the RN Medical Screening Exam: Yes Case reviewed; plan agreed upon as documented in EMR&OBIX.: Yes Diagnosis: FALSE LABOR BEFORE 37 COMPLETED WEEKS OF GEST, THIRD TRI
== END 2024-04-26 21:58 | disposition home or self-care (01) ==
LOC: FBPOP 19:05
PROVIDERS: ATTEND Obstetrics & Gynecology Obstetrics
DX: O47.03 False labor before 37 completed weeks of gestation, third trimester (principal); Z3A.31 31 weeks gestation of pregnancy
CPT/HCPCS: 59025; 96360; 96361; 96372; 36415; 86900; 86901; 86762; 82947; 85025; 86850; 87340; 81001; 87491; 87591; 86780; 80306; 87390; G0463; J3105; 99213

== ENCOUNTER 2024-04-28 20:46 | Observation (INO) | payer OTHER ==
[2024-04-28] MEDS: NIFEdipine 10 MG CAP PO SCH (21:37)
[2024-04-28] MEDS: LACTATED RINGERS 1,000 ML IV ONE (21:42)
[2024-04-28 21:46] LABS: Appearance,Urine Cloudy (Clear); Bacteria,Urine Rare /hpf; Bilirubin,Urine Negative (Negative); Blood,Urine Negative (Negative); Color,Urine Yellow; Glucose,Urine (UA) Negative (Negative); Hyaline Casts,Urine 1 /lpf (0-2); Ketones,Urine 1+ (Negative); Leukocyte Esterase,Urine Moderate (Negative); Mucus,Urine Few /hpf; Nitrite,Urine Negative (Negative); PH, Urine 7.5 (5.0-8.0); Protein,Urine Trace (Negative); RBC,Urine 3 /hpf (0-5); Squamous Epithelial Cell,Urine 11 /hpf (0-4); WBC,Urine 9 /hpf (0-5)
[2024-04-28] MEDS: BETAMET ACET-BETAMETH SOD PHOS 6 MG/ML MDV IM SCH (21:48)
[2024-04-28] MEDS: INDOMETHACIN 25 MG CAP PO STA (22:46)
[2024-04-28] MEDS: LACTATED RINGERS 1,000 ML IV SCH (22:47)
[2024-04-28 23:25] VITALS: TEMP 96.9
[2024-04-29] MEDS: TERBUTALINE 1 MG/ML VIAL SQ STA (00:31)
[2024-04-29] MEDS: INDOMETHACIN 25 MG CAP PO SCH (04:46)
[2024-04-29] MEDS: NITROFURANTOIN MONOHYD/M-CRYST 100 MG CAP PO SCH (05:53)
[2024-04-29] MEDS: MORPHINE SULFATE 4 MG/ML SYRINGE IVP STA (05:56)
[2024-04-29] MEDS ORDERED: INDOMETHACIN 25 MG CAP PO SCH (09:00)
[2024-04-29] MEDS: MAGNESIUM SULFATE GM 6 GM in SODIUM CHLORIDE 0.9% 100 ML IVPB ONE (09:26)
[2024-04-29] MEDS: PENICILLIN G POTASSIUM 5,000,000 UNIT in DEXTROSE 5% IN WATER 100 ML IVPB STA (09:30)
--- NOTE | 2024-04-29 09:39 | US ---
EXAMINATION TYPE: US OB >= 14 wk fetus DATE OF EXAM: 04/29/2024 COMPARISON: None CLINICAL INDICATION: Female, 23 years old with history of No care, position of fetus, growth , rahul; TECHNIQUE: Transabdominal (TA) FINDINGS: GESTATIONAL AGE / DATING Physician Established: 06/26/24 (31 weeks/5 days) EDC: 06/26/24 Dates by LMP: LMP unknown Dates by First Scan: No previous this is first scan here Dates by Current Scan (31 weeks/4 days) EDC: 06/27/24 Beta HCG (if available): Not available at this time SURVEY IUP: Single PLACENTA: Anterior PREVIA: No Previa RAHUL: 17.97 cm Normal CERVICAL LENGTH (transabdominal: norm > 3.0cm): 3.22 cm BIOMETRY PRESENTATION: Vertex LIE: Longitudinal BPD: 7.65 cm 30 weeks / 5 days HC: 28.05 cm 30 weeks / 6 days AC: 29.89 cm 34 weeks / 0 days FL: 5.88 cm 30 weeks / 5 days ESTIMATED WEIGHT IN GRAMS: 1953 grams ESTIMATED WEIGHT IN LBS/OZ: 4 lbs. 5 oz. WEIGHT PERCENTAGE BASED ON ESTABLISHED DATES: 60% HC/AC: 0.94 FL/AC: 20% HEART RATE: 142 bpm RHYTHM: Normal IMPRESSION: 1. Single viable intrauterine with a gestational age at 31 weeks and 4 days. 2. Normal amniotic fluid index. 3. Normal heart rate and rhythm. 4. Anterior placenta with no placenta previa 5. Limited exam for anatomy. Exam not performed for assessment of possible anomalies. Fet al anomalies cannot be excluded with this limited exam. [facility], , 04/29/2024 9:34 AM
[2024-04-29] MEDS: MAGNESIUM SULFATE-WATER PMX 20 GM in WATER FOR INJECTION 1 500ML.BAG IV SCH (09:54)
--- NOTE | 2024-04-29 10:06 | P.HPOB ---
History of Present Illness H&P Date: 04/29/24 Chief Complaint: contractions Ms. Banerjee is a 23 year old at 31 weeks and 6 days with EDC of 06-25-2024 by 11 week US at [facility] who presented to triage yesterday evening with contractions for the second time this week. She initially presented on 04-26, c ervix was 1/long/high and her contractions resolved with a dose of terbutaline and IV fluids. She was sent home. 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 Her cervical exam throughout the night was 2/long/high. This morning on my exam her cervix is 3/long/high, she continues to have contractions every 2-4 minutes despite a dose of Procardia, a dose of Terbutaline, and a two doses of Indomethacin. The patient has not been had care yet this , as she had a difficult time getting into the offices nearest to her. The patient is uncertain of her LMP. The patient denies fevers, chills, recent sick contacts. When she was seen in triage on 04-26 her UA was suspicious for UTI upon chart review, therefore she was given 1 gram of Ceftriaxone follow by Macrobid 100mg BID to empirically treat the UTI. A urine culture was sent. A GBS culture was collected. She is noted to be GBS positive during her prior . US today shows biometry consistent with stated dates, cephalic presentation, adequate amniotic fluid, no obvious anatomical anomalies Obstetric history: 1 vaginal delivery at 36 weeks secondary to PPROM (May 2022) for a viable female Past medical history: None Past surgical history: None Social history: patient denies alcohol, tobacco, and drug use during Past Medical History Past Medical History: No Reported History History of Any Multi-Drug Resistant Organisms: None Reported Past Surgical History: No Surgical Hx Reported Past Anesthesia/Blood Transfusion Reactions: No Reported Reaction Past Psychological History: No Psychological Hx Reported Smoking Status: Never smoker Past Alcohol Use History: None Reported Past Drug Use History: None Reported Medications and Allergies Home Medications Medication Instructions Recorded Confirmed Type Vit No.179/Iron/Folic 1 each PO 04/28/24 History [ Tablet] Allergies Allergy/AdvReac Type Severity Reaction Status Date / Time No Known Allergies Allergy Verified 04/28/24 20:51 Exam Vital Signs Temp 04/28/24 23:19 96.9 F L Intake and Output 04/28/24 04/29/24 04/29/24 22:59 06:59 14:59 Other: # Voids 3 Weight 61.235 kg Focused physical exam is performed. This is a healthy-appearing in no apparent distress. Breathing is non-labored. Abdomen is gravid and non-tender. Cervical exam is 3/long/high. Extremities non-tender and non-edematous. heart tones are Category I and tocometer is graphing contractions every 2-4 minutes. Results Abnormal Lab Results - Last 24 Hours (Table) 04/28/24 Range/Units 21:26 Urine Appearance Cloudy H (Clear) Urine Protein Trace H (Negative) Urine Ketones 1+ H (Negative) Ur Leukocyte Esterase Moderate H (Negative) Urine WBC 9 H (0-5) /hpf Ur Squamous Epith Cells 11 H (0-4) /hpf Urine Bacteria Rare H (None) /hpf Urine Mucus Few H (None) /hpf Assessment and Plan Assessment: 24 week at 31 weeks and 6 days (dated by 11 week US, consistent with biometry on US today) presenting in labor Plan: Labor - Pt made cervical change of 1cm on 04-26 > 2cm on 04-28 > 3/long/high on 04-29. - GBS cx collected - PCN started for GBS ppx @ 930 04/29 - IV Mag SO4 6g bolus started @ 926 04/29 - Tocolysis with Indomethacin (started @ 22:46 04/28) - BMZ first dose @ 21:48 04/28 Suspected UTI - Macrobid 100mg BID empiric treatment - Urine cx pending Dispo: Patient discussed with Dr. Yana Dong (journalism intern) on behalf of supervising attending Dr. Dominga Lozano. They have accepted the transfer to [facility].
[2024-04-29] MEDS ORDERED: PENICILLIN G POTASSIUM 2,500,000 UNIT in DEXTROSE 5% IN WATER 100 ML IVPB SCH (13:15)
== END 2024-04-29 10:30 ==
LOC: FBPOP 20:46 → 4FBP 22:35 → INTOOBSV 22:35 → UNDODISIN 04-29 10:30
PROVIDERS: ADMIT Obstetrics & Gynecology; ATTEND Obstetrics & Gynecology
DX: O60.03 Preterm labor without delivery, third trimester (principal); O09.33 Supervision of pregnancy with insufficient antenatal care, third trimester; Z3A.31 31 weeks gestation of pregnancy
CPT/HCPCS: 59025; 96361; 96365; 96372 ×2; 96375; 81001; 87086; 87081; 76805; G0463; G0378 ×2; J2270; J3105; J0696; J3475 ×2; J2540; J0702; 96360; 99213; 99214

== ENCOUNTER 2024-05-22 23:49 | Observation (INO) | payer OTHER ==
[2024-05-23] MEDS: LACTATED RINGERS 1,000 ML IV ONE ×2 (00:30→04:22)
[2024-05-23] MEDS ORDERED: miSOPROStoL 200 MCG TAB RECTAL PRN (04:06)
[2024-05-23] MEDS ORDERED: CARBOPROST TROMETHAMINE 250 MCG/ML 1 ML AMP IM PRN (04:06)
[2024-05-23] MEDS ORDERED: METHYLERGONOVINE 0.2 MG/ML 1 ML AMP IM PRN (04:06)
[2024-05-23] MEDS ORDERED: OXYTOCIN 10 UNIT/ML 1 ML VIAL IM PRN (04:06)
[2024-05-23] MEDS ORDERED: TRANEXAMIC 1,000 MG/100ML-NACL 1,000 MG in EMPTY BAG 1 BAG IV PRN (04:06)
[2024-05-23] MEDS ORDERED: LIDOCAINE 0.5% (PF) 5 MG/ML (50 ML SDV) SQ PRN (04:06)
[2024-05-23] MEDS ORDERED: miSOPROStoL 200 MCG TAB PO PRN (04:06)
[2024-05-23] MEDS ORDERED: TERBUTALINE 1 MG/ML VIAL SQ PRN (04:06)
[2024-05-23] MEDS ORDERED: NALBUPHINE 10 MG/ML (10 ML MDV) IV PRN (04:08)
[2024-05-23] MEDS: AMPICILLIN 2,000 MG in SODIUM CHLORIDE 0.9% 100 ML IVPB STA (04:21)
[2024-05-23 04:36] VITALS: RESP 16
[2024-05-23 04:52] VITALS: BP 109/59; PULSE 78; TEMP 98.1
[2024-05-23 04:55] LABS: Basophils % (A) 0 %; Eosinophils % (A) 0 %; HCT 32.3 % (34.0-46.0); HGB 10.5 gm/dL (11.4-16.0); Lymphocytes # (A) 1.8 k/uL (1.0-4.8); Lymphocytes % (A) 19 %; MCH 28.8 pg (25.0-35.0); MCHC 32.5 g/dL (31.0-37.0); MCV 88.6 fL (80.0-100.0); Mean Platelet Volume 7.9; Monocytes # (A) 0.5 k/uL (0-1.0); Monocytes % (A) 5 %; Neutrophils % (A) 74 %; Platelet Count 221 k/uL (150-450); RBC 3.64 m/uL (3.80-5.40); RDW 12.6 % (11.5-15.5); WBC 9.5 k/uL (3.8-10.6)
--- NOTE | 2024-05-23 06:03 | P.HPOB ---
History of Present Illness H&P Date: 05/23/24 Chief Complaint: contractions 23 year old presents at 35 weeks 1 day complaining of contractions. She does have a history of delivery at 36 weeks with last . A few weeks ago she was transferred to [place] where she had magnesium sulfate and celestone. Today heart tones are category 1. Her contractions are every few minutes but she is only uncomfortable ever 5-10 minutes. Her cervix was 4/70/-3 and now 4/80/-3. I will admit her for observation and possible labor. Review of Systems All systems: negative Constitutional: Denies chills, Denies fever Eyes: denies blurred vision, denies pain Ears, nose, mouth and throat: Denies headache, Denies sore throat Cardiovascular: Denies chest pain, Denies shortness of breath Respiratory: Denies cough Gastrointestinal: Denies abdominal pain, Denies diarrhea, Denies nausea, Denies vomiting Genitourinary: Denies dysuria, Denies hematuria Musculoskeletal: Denies myalgias Integumentary: Denies pruritus, Denies rash Neurological: Denies numbness, Denies weakness Psychiatric: Denies anxiety, Denies depression Endocrine: Denies fatigue, Denies weight change Past Medical History Past Medical History: No Reported History History of Any Multi-Drug Resistant Organisms: None Reported Past Surgical History: No Surgical Hx Reported Past Anesthesia/Blood Transfusion Reactions: No Reported Reaction Past Psychological History: No Psychological Hx Reported Smoking Status: Never smoker Past Alcohol Use History: None Reported Past Drug Use History: None Reported - Past Family History Sister(s) Family Medical History: No Reported History Medications and Allergies Home Medications Medication Instructions Recorded Confirmed Type Vit No.179/Iron/Folic 1 each PO 04/28/24 History [ Tablet] Allergies Allergy/AdvReac Type Severity Reaction Status Date / Time No Known Allergies Allergy Verified 04/28/24 20:51 Exam Osteopathic Statement: *. No significant issues noted on an osteopathic structural exam other than those noted in the History and Physical/Consult. Vital Signs Temp Pulse Resp BP Pulse Ox 05/23/24 04:40 98.1 F 78 16 109/59 98 05/22/24 23:54 97.9 F 77 16 117/57 97 Intake and Output 05/22/24 05/22/24 05/23/24 14:59 22:59 06:59 Other: Weight 61.689 kg Heart: Regular rate and rhythm Lungs: Clear to auscultation bilaterally Abdomen: Soft, nontender Extremities: Negative Homans sign Results Result Diagrams: 05/23/24 00:30 Abnormal Lab Results - Last 24 Hours (Table) 05/23/24 Range/Units 00:30 RBC 3.64 L (3.80-5.40) m/uL Hgb 10.5 L (11.4-16.0) gm/dL Hct 32.3 L (34.0-46.0) % Assessment and Plan (1) 35 weeks gestation of Current Visit: Yes Status: Acute Code(s): Z3A.35 - 35 WEEKS GESTATION OF SNOMED Code(s): 54014515 (2) contractions Current Visit: Yes Status: Acute Code(s): O47.00 - FALSE LABOR BEFORE 37 COMPLETED WEEKS OF GEST, UNSP TRI SNOMED Code(s): 471989520 Plan: 1. admit to [facility] 2. expectant management 3. hopefully the contractions will space out and she will be able to go home. If they get stronger, she will be delivered.
[2024-05-23] MEDS: AMPICILLIN 1,000 MG in SODIUM CHLORIDE 0.9% 50 ML IVPB SCH (08:08)
[2024-05-23] MEDS: LACTATED RINGERS 1,000 ML IV SCH (08:08)
--- NOTE | 2024-05-23 13:04 | P.DS ---
Providers Date of admission: 05/23/24 03:23 Expected date of discharge: 05/23/24 Attending physician: Jenn Call Primary care physician: Stated None - Discharge Diagnosis(es) (1) 35 weeks gestation of Current Visit: Yes Status: Acute (2) contractions Current Visit: Yes Status: Acute Hospital Course: This 23-year-old presented with contractions. Her cervix was 4 cm dilated, 70% effaced, ballotable. Despite regular contractions through the night in the morning her contractions spaced out and she was not feeling very uncomfortable. heart tones remained category 1 the entire night. Since she is only 35 weeks gestation I do not want to augment her labor. She remains unchanged and nonlabored so I will discharge her home to follow-up with her own physician this week. Plan - Discharge Summary New Discharge Prescriptions: No Action Vit No.179/Iron/Folic [ Tablet] 1 each PO Discharge Medication List Vit No.179/Iron/Folic [ Tablet] 1 each PO 04/28/24 [History] Discharge Disposition: HOME SELF-CARE
== END 2024-05-23 13:10 | disposition home or self-care (01) ==
LOC: FBPOP 23:49 → 4FBP 05-23 03:23 → INTOOBSV 05-23 03:23 → UNDODISIN 05-23 13:10
PROVIDERS: ADMIT Obstetrics & Gynecology; ATTEND Obstetrics & Gynecology
DX: O60.03 Preterm labor without delivery, third trimester (principal); Z3A.35 35 weeks gestation of pregnancy
CPT/HCPCS: 59025; 96376; 96365; 86900; 86901; 85025; 86850; G0463; G0378; G0379; J0290 ×2; 96360; 99213; 99214

== ENCOUNTER 2024-05-26 00:19 | Outpatient (CLI) | payer OTHER ==
[2024-05-26 01:36] LABS: Appearance,Urine Cloudy (Clear); Bacteria,Urine Rare /hpf; Bilirubin,Urine Negative (Negative); Blood,Urine Negative (Negative); Color,Urine Light Yellow; Glucose,Urine (UA) Negative (Negative); Ketones,Urine Negative (Negative); Leukocyte Esterase,Urine Moderate (Negative); Mucus,Urine Rare /hpf; Nitrite,Urine Negative (Negative); Protein,Urine Negative (Negative); RBC,Urine 1 /hpf (0-5); Specific Gravity,Urine 1.019 (1.001-1.035); Squamous Epithelial Cell,Urine 11 /hpf (0-4); Urobilinogen,Urine <2.0 mg/dL (<2.0); WBC,Urine 2 /hpf (0-5)
[2024-05-26] MEDS: LACTATED RINGERS 1,000 ML IV ONE (01:54)
[2024-05-26 03:17] VITALS: BP 138/63; PULSE 89; RESP 16; TEMP 97.9
[2024-05-26 15:12] LABS: Amphetamine Screen,Urine Not Detected (NotDetected); Barbiturate Screen,Urine Not Detected (NotDetected); Benzodiazepines Screen,Urine Not Detected (NotDetected); Cocaine Screen,Urine Not Detected (NotDetected); Methadone Screen, Urine Not Detected (NotDetected); Opiate Screen,Urine Not Detected (NotDetected); Oxycodone Screen, Urine Not Detected (NotDetected); Phencyclidine Screen,Urine Not Detected (NotDetected); Tricyclic Antidepressant,Urine Not Detected (NotDetected); Urn Cannabinoid Scrn Not Detected (NotDetected)
--- NOTE | 2024-05-27 12:00 | P.MSEPDOC ---
Presenting Problems - Arrival Data Date of Arrival on Unit: 05/26/24 Time of Arrival on Unit: 00:19 Mode of Transport: Ambulatory - Complaint OB-Reason for Admission/Chief Complaint: Rule Out SROM Comment: pt. present to triage due to possible SROM and contrcations rating 5/10. Medical History - Information : 2 Para: 1 Term: 0 : 1 Abortions: Spontaneous or Elective: 0 Number of Living Children: 1 - Gestational Age Gestational Age by DONELL (wks/days): 35 Weeks and 4 Days - History Comment: late care- 33 weeks Review of Systems - Review of Systems Constitutional: No problems Breast: No problems ENT: No problems Cardiovascular: No problems Respiratory: No problems Gastrointestinal: No problems Genitourinary: No problems Musculoskeletal: No problems Neurological: No problems Skin: No problems Vital Signs - Temperature Temperature: 97.9 F Temperature Source: Temporal Artery Scan - Pulse Pulse Oximetery Pulse Rate: 89 Pulse Assessment Method: Automatic Cuff - Respirations Respiratory Rate: 16 Oxygen Delivery Method: Room Air O2 Sat by Pulse Oximetry: 96 - Blood Pressure Right Arm Blood Pressure: 138/63 Blood Pressure Mean: 88 Blood Pressure Source: Automatic Cuff Medical Screen Scoring - Cervical Exam Dilation (cm): 5 Effacement (%): 80 Station: -2 Membranes: Intact - Uterine Contractions Frequency From (mins): 2 Frequency To (mins): 8 Duration From (seconds): 30 Duration To (seconds): 100 Intensity: Moderate Resting: Soft to palpation - Assessment - Baby A Baseline FHR: 125 Heart Rate - NICHD Category: Category I (Normal) NST: Reactive Physician Notification - Physician Notified Physician Notified Date: 05/26/24 Physician Notified Time: 02:38 Physician: Walker Garcia New Order Received: Yes (orders to discharge home after 2ng bag of fluids is finished) - Notification Comment Comment: cervix 4.5 at last apt. 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 cervix 4, 70-3, after hour 5cm, 80,%-2, orders to give pt. 2L of LR bolus and recheck in another hour, no cervical change in the additional hour, orders to discharge pt. home after 2nd bag of LR in complete Maternal Triage Index - Maternal Triage Index Presenting for scheduled procedure w/no complaint: No - Stat/Priority 1 Stat Priority 1: No - Urgent/Priority 2 Urgent Priority 2: Yes Provider Notified: Walker Garcia Provider Notified Time: 01:35 Criteria Met for Priority 2: 35 09/10, contractions, amnisure negative Disposition - Disposition OB Disposition: Discharge to home Discharge Date: 05/26/24 Discharge Time: 03:16 I agree with the RN Medical Screening Exam: Yes Physician's MSE Comment: I have neither seen nor examined the patient. Case reviewed; plan agreed upon as documented in EMR&OBIX.: Yes Diagnosis: RELATED CONDITIONS, UNSPECIFIED, THIRD TRIMESTER
== END 2024-05-26 03:16 | disposition home or self-care (01) ==
LOC: FBPOP 00:19
PROVIDERS: ATTEND Obstetrics & Gynecology
DX: O47.03 False labor before 37 completed weeks of gestation, third trimester (principal); Z3A.35 35 weeks gestation of pregnancy
CPT/HCPCS: 59025; 96360; 96361; 84112; 36415; 81001; 80306; G0463; 99214

== ENCOUNTER 2024-06-14 10:35 | Inpatient (IN) | payer OTHER ==
[2024-06-14] MEDS ORDERED: miSOPROStoL 200 MCG TAB RECTAL PRN (11:23)
[2024-06-14] MEDS ORDERED: LIDOCAINE 0.5% (PF) 5 MG/ML (50 ML SDV) SQ PRN (11:23)
[2024-06-14] MEDS ORDERED: miSOPROStoL 200 MCG TAB PO PRN (11:23)
[2024-06-14] MEDS ORDERED: TRANEXAMIC 1,000 MG/100ML-NACL 1,000 MG in EMPTY BAG 1 BAG IV PRN (11:23)
[2024-06-14] MEDS ORDERED: OXYTOCIN 10 UNIT/ML 1 ML VIAL IM PRN (11:23)
[2024-06-14] MEDS ORDERED: CARBOPROST TROMETHAMINE 250 MCG/ML 1 ML AMP IM PRN (11:23)
[2024-06-14] MEDS ORDERED: METHYLERGONOVINE 0.2 MG/ML 1 ML AMP IM PRN (11:23)
[2024-06-14] MEDS ORDERED: TERBUTALINE 1 MG/ML VIAL SQ PRN (11:23)
[2024-06-14] MEDS ORDERED: OXYTOCIN 30 UNITS/500 ML NS 30 UNIT in SALINE 1 500ML.BAG IV SCH (11:30)
--- NOTE | 2024-06-14 11:45 | P.HPOB ---
History of Present Illness H&P Date: 06/14/24 Chief Complaint: IUP at 38-3/7 weeks, active labor 23-year-old G2, P1 at 38-3/7 weeks that presents with complaints of regular painful contractions. Patient has been receiving care at [facility]. She states she has struggled with contractions through the and was admitted to a [facility] for observation. Patient did receive betamethasone during this secondary to labor. Patient has a prior history of a 36-week delivery after PPROM Patient denies loss of fluid or vaginal bleeding. She notes good movement. 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, 36 weeks, PPROM 2 current Review of Systems Constitutional: Denies chills, Denies fatigue, Denies fever Ears, nose, mouth and throat: Denies headache Cardiovascular: Reports leg edema Respiratory: Denies dyspnea Gastrointestinal: Denies nausea, Denies vomiting Genitourinary: Reports Past Medical History Past Medical History: No Reported History History of Any Multi-Drug Resistant Organisms: None Reported Past Surgical History: No Surgical Hx Reported Past Anesthesia/Blood Transfusion Reactions: No Reported Reaction Smoking Status: Never smoker - Past Family History Sister(s) Family Medical History: No Reported History Medications and Allergies Home Medications Medication Instructions Recorded Confirmed Type Vit No.179/Iron/Folic 1 each PO DAILY 04/28/24 05/26/24 History [ Tablet] Allergies Allergy/AdvReac Type Severity Reaction Status Date / Time No Known Allergies Allergy Verified 06/14/24 11:23 Exam Osteopathic Statement: *. No significant issues noted on an osteopathic structural exam other than those noted in the History and Physical/Consult. Intake and Output 06/13/24 06/14/24 06/14/24 22:59 06:59 14:59 Other: Weight 65.317 kg Targeted physical exam is performed this date General Is well-nourished well- developed female in no acute distress, breathing is noted to be nonlabored, she is uncomfortable with contractions. Abdomen is noted to be gravid, on cervical exam she is 9/100/-1 station amniotomy is performed and clear fluid is obtained. heart tones are noted to be category 1 and she alex every 2 to 3 minutes. Assessment and Plan (1) Term Current Visit: Yes Status: Acute Code(s): Z34.90 - ENCNTR FOR SUPRVSN OF NORMAL , UNSP, UNSP TRIMESTER SNOMED Code(s): 68708685 (2) Active labor Current Visit: Yes Status: Acute Code(s): HOX2973 - SNOMED Code(s): 227617398 Plan: 23-year-old G2, P1 at 38-3/7 weeks presents in active labor. Patient is admitted to labor and delivery. Patient is unsure of her GBS status but states that she was negative with her last . Amniotomy is performed, anticipate spontaneous vaginal delivery
[2024-06-14 12:02] LABS: Basophils % (A) 0 %; Eosinophils % (A) 0 %; HCT 35.1 % (34.0-46.0); HGB 11.6 gm/dL (11.4-16.0); Lymphocytes # (A) 1.6 k/uL (1.0-4.8); Lymphocytes % (A) 13 %; MCH 28.4 pg (25.0-35.0); MCHC 32.9 g/dL (31.0-37.0); MCV 86.4 fL (80.0-100.0); Mean Platelet Volume 7.2; Monocytes # (A) 0.5 k/uL (0-1.0); Monocytes % (A) 4 %; Neutrophils # (A) 9.9 k/uL (1.3-7.7); Neutrophils % (A) 81 %; Platelet Count 209 k/uL (150-450); RBC 4.07 m/uL (3.80-5.40); RDW 13.4 % (11.5-15.5); WBC 12.3 k/uL (3.8-10.6)
[2024-06-14] MEDS ORDERED: BENZOCAINE/MENTHOL SPRAY 1 GM/SPRAY AEROSOL TOPICAL PRN (12:44)
[2024-06-14] MEDS ORDERED: SIMETHICONE 80 MG CHEWABLE PO PRN (12:44)
[2024-06-14] MEDS ORDERED: HYDROCORTISONE 2.5% RECTAL CREAM 30 GM TUBE RECTAL PRN (12:44)
[2024-06-14] MEDS ORDERED: LANOLIN CREAM 1 GM TUBE TOPICAL PRN (12:44)
[2024-06-14] MEDS ORDERED: diphenhydrAMINE 50 MG/ML 1 ML VIAL IVP PRN ×2 (12:44)
[2024-06-14] MEDS ORDERED: diphenhydrAMINE 50 MG CAP PO PRN (12:44)
[2024-06-14] MEDS ORDERED: ZOLPIDEM 5 MG TAB PO PRN (12:44)
[2024-06-14] MEDS ORDERED: diphenhydrAMINE 25 MG CAP PO PRN (12:44)
--- NOTE | 2024-06-14 12:44 | P.PROBDLV ---
Vaginal Delivery Note - . Vaginal Delivery Note: Viable male delivered at 1219, weight of 7 pounds 10 ounces 33-year-old G2, P1 at 38-2/7 weeks that presents to labor and delivery in active labor. [facility] been receiving [facility] at [facility] in [place]. Patient is admitted amniotomy is performed and clear fluid was obtained. Patient progressed to complete began pushing and had a normal spontaneous vaginal delivery of a viable male at 1219, weight of 7 pounds 10 ounces, Apgars of 8 and 9 at 1 and 5 minutes respectively. After 2-minute delay the umbilical cord is doubly clamped and cut placenta was delivered spontaneously intact with three-vessel cord being noted. No vaginal lacerations were appreciated after delivery of the placenta. Spontaneous cry was noted at . All counts noted be correct x 2. Patient and tolerated delivery well and are resting comfortably.
[2024-06-14] MEDS: IBUPROFEN 800 MG TAB PO SCH (12:53)
[2024-06-14] MEDS: AMPICILLIN 1,000 MG in SODIUM CHLORIDE 0.9% 50 ML IVPB SCH (15:48)
[2024-06-14] MEDS: SENNOSIDES-DOCUSATE SODIUM 1 EACH TAB PO SCH (20:17)
[2024-06-14] MEDS: ACETAMINOPHEN TAB 500 MG TAB PO SCH (20:17)
[2024-06-14] MEDS: AMPICILLIN 2,000 MG in SODIUM CHLORIDE 0.9% 100 ML IVPB STA (20:44)
[2024-06-14] MEDS: LACTATED RINGERS 500 ML IV SCH (20:53)
[2024-06-14] MEDS: LACTATED RINGERS 1,000 ML IV SCH (20:53)
[2024-06-15] MEDS: ACETAMINOPHEN TAB 500 MG TAB PO SCH (03:46)
[2024-06-15 08:23] VITALS: BP 120/73; PULSE 59; RESP 16; TEMP 97.8
--- NOTE | 2024-06-15 11:09 | P.DS ---
Providers Date of admission: 06/14/24 10:46 Expected date of discharge: 06/15/24 Attending physician: Dominga Esqueda Primary care physician: Stated None - Discharge Diagnosis(es) (1) Term Current Visit: Yes Status: Acute (2) Active labor Current Visit: Yes Status: Acute (3) Status post normal vaginal delivery Current Visit: Yes Status: Acute Hospital Course: 23-year-old G2 now P2 that presented to labor and delivery at 38-2/7 weeks in active labor on 06/14. Patient was receiving care at [facility] in [place]. Patient was noted to be 7 cm upon admission. Patient was admitted to labor and delivery and progressed to complete dilation. Amniotomy was performed and clear fluid was obtained. With excellent maternal effort patient began pushing and had a normal spontaneous vaginal delivery of a viable male infant at 1219, weight of 7 pounds 10 ounces. Patient has done well . In this day #1 she is ambulating and voiding without difficulty. She is tolerating a regular diet without nausea or vomiting. She states her pain is well-controlled. She denies concerns. She would like discharge home at 24 hours. Patient Condition at Discharge: Good Plan - Discharge Summary New Discharge Prescriptions: No Action Vit No.179/Iron/Folic [ Tablet] 1 each PO DAILY Discharge Medication List Vit No.179/Iron/Folic [ Tablet] 1 each PO DAILY 04/28/24 [History] Follow up Appointment(s)/Referral(s): Dominga Esqueda DO [Doctor of Osteopathic Medicine] - 6 Weeks Patient Instructions/Handouts: Vaginal Delivery (GEN), Vaginal Delivery (DC) Activity/Diet/Wound Care/Special Instructions: [id number]-[id number] ibuprofen 600 mg or 3 tablets every 6 hours as needed for pain. No tub baths or intercourse until 6 weeks . Patient is to follow-up with [facility] for routine care. Discharge Disposition: HOME SELF-CARE
== END 2024-06-15 15:30 | disposition home or self-care (01) | DRG 560 ==
LOC: FBPOP 10:35 → 4FBP 10:46
PROVIDERS: ADMIT Obstetrics & Gynecology Obstetrics; ATTEND Obstetrics & Gynecology Obstetrics
PROC: 10E0XZZ Delivery of Products of Conception, External Approach (ICD-10-PCS; principal; 2024-06-14)
PROC: 10907ZC Drainage of Amniotic Fluid, Therapeutic from Products of Conception, Via Natural or Artificial Opening (ICD-10-PCS; 2024-06-14)
DX: O42.919 Preterm premature rupture of membranes, unspecified as to length of time between rupture and onset of labor, unspecified trimester (principal); Z3A.38 38 weeks gestation of pregnancy; Z37.0 Single live birth; Z87.51 Personal history of pre-term labor
CPT/HCPCS: 85025; 86850; 86900; 86901